=== PATIENT | female | born 1995 | race Caucasian/White ===

== ENCOUNTER 2018-03-23 21:19 | Emergency (ER) | payer SELFPAY ==
[2018-03-23 21:38] VITALS: BP 114/56
[2018-03-23 22:54] LABS: ABSOLUTE BASOPHILS # (AUTO) 0.1 10^3/uL (0.0-0.2); ABSOLUTE LYMPHOCYTES (AUTO) 2.6 10^3/uL (0.5-4.7); ABSOLUTE MONOCYTES (AUTO) 0.7 10^3/uL (0.1-1.4); ABSOLUTE NEUT (AUTO) 8.7 10^3/uL (1.7-8.2); BASOPHILS % (AUTO) 0.8 % (0-2); EOSINOPHILS % (AUTO) 0.2 % (0-6); HEMATOCRIT 38.8 % (36.0-47.0); HEMOGLOBIN 13.5 g/dL (12.0-15.5); LYMPHOCYTES % (AUTO) 21.1 % (13-45); MEAN CORPUSCULAR HEMOGLOBIN 34.7 pg (27.0-33.4); MEAN CORPUSCULAR HGB CONC 34.7 g/dL (32.0-36.0); MEAN CORPUSCULAR VOLUME 100 fl (80-97); PLATELET COUNT 300 10^3/uL (150-450); RED BLOOD COUNT 3.89 10^6/uL (3.72-5.28); RED CELL DISTRIBUTION WIDTH 13.2 % (11.5-14.0); SEGMENTED NEUTROPHILS % (AUTO) 71.9 % (42-78); TOTAL CELLS COUNTED % (AUTO) 100 %; WHITE BLOOD COUNT 12.1 10^3/uL (4.0-10.5)
[2018-03-23 22:58] LABS: APPEARANCE,URINE SLIGHTLY-CLOUDY; BILIRUBIN,URINE NEGATIVE (NEGATIVE); COLOR,URINE YELLOW; GLUCOSE, URINE 50 mg/dL (NEGATIVE); KETONES,URINE 80 mg/dL (NEGATIVE); LEUKOCYTE ESTERASE,URINE NEGATIVE (NEGATIVE); NITRITE,URINE NEGATIVE (NEGATIVE); PROTEIN,URINE 100 mg/dL (NEGATIVE); URINE SPECIFIC GRAVITY 1.023
[2018-03-23] MEDS ORDERED: METOCLOPRAMIDE HCL INJ/PF 10 MG/2 ML SDV IV ONE (23:21)
[2018-03-23] MEDS ORDERED: RINGERS SOLUTION,LACTATED 1,000 ML IV PRN (23:21)
--- NOTE | 2018-03-23 23:25 | ER Document Report ---
ED General - General Chief Complaint: Nausea/Vomiting Stated Complaint: VOMITING Time Seen by Provider: 03/23/18 23:14 Notes: Patient is a pleasant 23-year-old female who is currently approximately 6 weeks . This is her first . She complains of some nausea and vomiting. No diarrhea. Vomit is been ongoing for a few weeks. She said she was seen approximately a week ago. She was placed on what sounds to be components of likely just. She says she does continue to vomit them up. She denies being on Reglan or Zofran. She does not have an OB doctor. She did have an ultrasound 1 week ago which showed a normal IUP. No vaginal bleeding or discharge since then. She has some upper abdominal pain associate with vomiting. No history of abdominal surgeries. TRAVEL OUTSIDE OF THE [place] IN LAST 30 DAYS: No - Related Data Allergies/Adverse Reactions: No Known Drug Allergies Allergy (Verified 03/23/18 22:36) Past Medical History - Social History Smoking Status: Never Smoker Chew tobacco use (# tins/day): No Frequency of alcohol use: None Drug Abuse: None Family History: Reviewed & Not Pertinent Patient has suicidal ideation: No Patient has homicidal ideation: No Renal/ Medical History: Denies: Hx Peritoneal Dialysis Review of Systems - Review of Systems Notes: My Normal Review Basic REVIEW OF SYSTEMS: CONSTITUTIONAL : Denies fever, chills, or sweats. Denies recent illness. EENT: Denies eye, ear, throat, or mouth pain or symptoms. Denies nasal or sinus congestion. RESPIRATORY: Denies cough, cold, or chest congestion. Denies shortness of breath, difficulty breathing, or wheezing. GASTROINTESTINAL: Upper abdominal pain. Recurrent vomiting. GENITOURINARY: Denies difficulty urinating, painful urination, burning, frequency, or blood in urine. FEMALE GENITOURINARY: Denies vaginal bleeding, abnormal or irregular periods. currently MUSCULOSKELETAL: Denies neck or back pain or joint pain or swelling. SKIN: Denies rash or skin lesions. NEUROLOGICAL: Denies altered mental status or loss of consciousness. Denies headache. Denies weakness or paralysis or loss of use of either side. Denies problems with gait or speech. Denies sensory or motor loss. ALL OTHER SYSTEMS REVIEWED AND NEGATIVE. Physical Exam - Vital signs Vitals: Temp Pulse Resp BP Pulse Ox 97.9 F 79 18 114/56 L 99 11/20/18 21:19 03/23/18 21:19 03/23/18 21:19 03/23/18 21:19 03/23/18 21:19 - Notes Notes: General Appearance: Well nourished, alert, cooperative, no acute distress, no obvious discomfort. Anxious Vitals: reviewed, See vital signs table. Head: no swelling or tenderness to the head Eyes: PERRL, EOMI, Conjuctiva clear Mouth: No decreasd moisture Neck: Supple, no neck tenderness, No thyromegaly Lungs: No wheezing, No rales, No rhonci, No accessory muscle use, good air exchange bilaterally. Heart: normal rate, Regular rythm, No murmur, no rub Abdomen: Normal BS, soft, No rigidity, some pain to palpation of upper abdomen that is mainly in the epigastric region. Lower abdomen is nontender., No guarding, no rebound, no abdominal masses, no organomegaly Extremities: strength 5/5 in all extremities, good pulses in all extremities, no swelling or tenderness in the extremities, no edema. Skin: warm, dry, appropriate color, no rash Neuro: speech clear, oriented x 3, normal affect, responds appropriately to questions. Course - Re-evaluation Re-evalutation: 03/24/18 00:51 Patient has what appears to be hyperemesis gravidarum. She does have some pain mainly in the epigastric region of her abdomen. I suspect this is from all the vomiting. She has minimal pain in the right upper quadrant and left upper quadrant. She has no pain lower abdomen. I do not suspect gallbladder disease as she does not have much pain to palpation right upper quadrant and the patient has normal liver enzymes and normal direct bilirubin. My plan was to continue to rehydrate the patient and then reassess the patient. Shortly after the patient received the medications she informed the nurse that she wanted to leave. I therefore went to talk to the patient. She said that she felt that she would be better if she just went home. She says she is also supposed to See her mom tomorrow in [place]. Her mother is a physician's assistant credit manager. States that she just feels better if she goes up and sees her mom and gets care there. She states she is not upset with her care here and states that she feels that she will be doing better at home. She did request water earlier after she revceived the the Reglan and apparently drank a small amount without vomiting. I went and spoke with the patient. I informed her that I think it is a bad idea to leave. I informed her that I would want to make sure that she continues to hold down liquids and that she actually receives a significant amount of IV fluids and that her pain improves. I informed her that I cannot be 100% sure that she will do well if she leaves at this time. I encouraged informed her that if she continues to have worsening vomiting that she will get more dehydrated and that she could potentially have a miscarriage or become more ill herself. Patient shows understanding of this and is awake and alert shows capacity to make her own decisions and her is at bedside. They both show appreciation for my concern but both say that they want to go home at this time the patient does not want to stay. She is agreeable to let me at least prescribe her some Reglan to try to help with her vomiting. She has only received approximately 500 mL's of IV fluids thus far. I do not feel I can hold the patient against her will. I will discharge patient as she requests and strongly encouraged her to come back to ER anytime as we want what is best for her and want her to get better. She is understanding that leaving while still dehydrated not demonstrating full ability to hold down significant amount of liquids could lead to her to becoming more dehydrated potentially causing a miscarriage. I again explained this to her at length and she shows understanding of this but still requests to be discharged. Dictation of this chart was performed using voice recognition software; therefore, there may be some unintended grammatical errors. - Vital Signs Vital signs: Temp Pulse Resp BP Pulse Ox 97.9 F 79 18 114/56 L 99 03/23/18 21:19 03/23/18 21:19 03/23/18 21:19 03/23/18 21:19 03/23/18 21:19 - Laboratory Result Diagrams: 03/23/18 22:30 03/23/18 23:17 Laboratory results interpreted by me: 03/23/18 03/23/18 03/23/18 22:30 22:30 22:40 WBC 12.1 H MCV 100 H MCH 34.7 H Absolute Neutrophils 8.7 H Carbon Dioxide Total Bilirubin Serum HCG, Qual POSITIVE H Urine Protein 100 H Urine Glucose (UA) 50 H Urine Ketones 80 H Urine Urobilinogen 2.0 H 03/23/18 23:17 WBC MCV MCH Absolute Neutrophils Carbon Dioxide 20 L Total Bilirubin 2.6 H Serum HCG, Qual Urine Protein Urine Glucose (UA) Urine Ketones Urine Urobilinogen Discharge - Discharge Clinical Impression: Hyperemesis gravidarum Condition: Fair Disposition: HOME, SELF-CARE Additional Instructions: Please follow up with a physician as soon as possible. As discussed with you, I am concerned that you are still dehydrated and I really think you should stay longer and continue to receive IV fluids. Further dehydration can lead to you becoming very ill and having a miscarriage. We are not mad at you for leaving and just want what is best for you so please return to the ER at any time so we can continue to treat you and get you better. Please take the new nausea medication (reglan) as prescribed. Please strongly consider return to the ER at any time for continued treatment and for rehydration. Please follow up with an OB doctor as soon as possible. I will give you a referral to our OB councilperson ( Dr. Wilder). Prescriptions: Metoclopramide HCl [Reglan 10 mg Tablet] 1 tab PO ASDIR PRN #25 tablet PRN Reason: Referrals: AMADOR WILDER MD [ACTIVE STAFF] - Follow up tomorrow
[2018-03-23 23:47] LABS: ALANINE AMINOTRANSFERASE 17 U/L (9-52); ALBUMIN 4.5 g/dL (3.5-5.0); ALKALINE PHOSPHATASE 39 U/L (38-126); ANION GAP 13 (5-19); ASPARTATE AMINO TRANSFERASE 22 U/L (14-36); BILIRUBIN,DIRECT 0.3 mg/dL (0.0-0.4); BILIRUBIN,TOTAL 2.6 mg/dL (0.2-1.3); BLOOD UREA NITROGEN 8 mg/dL (7-20); CARBON DIOXIDE 20 mmol/L (22-30); CHLORIDE 107 mmol/L (98-107); GLUCOSE 85 mg/dL (75-110); POTASSIUM 4.2 mmol/L (3.6-5.0); SODIUM 139.5 mmol/L (137-145); TOTAL PROTEIN 7.6 g/dL (6.3-8.2)
== END 2018-03-24 00:55 | disposition home or self-care (01) ==
LOC: ER 21:19
DX: O21.1 Hyperemesis gravidarum with metabolic disturbance (principal); O26.899 Other specified pregnancy related conditions, unspecified trimester; R10.13 Epigastric pain; Z3A.00 Weeks of gestation of pregnancy not specified
CPT/HCPCS: 99284; 96360; 36415; 84703; 85025; 80053; 81001; J2765; J7120

== ENCOUNTER 2018-04-15 07:15 | Emergency (ER) | payer SELFPAY ==
[2018-04-15 07:50] LABS: ABSOLUTE LYMPHOCYTES (AUTO) 0.6 10^3/uL (0.5-4.7); ABSOLUTE MONOCYTES (AUTO) 0.3 10^3/uL (0.1-1.4); ABSOLUTE NEUT (AUTO) 10.7 10^3/uL (1.7-8.2); BASOPHILS % (AUTO) 0.2 % (0-2); EOSINOPHILS % (AUTO) 0.1 % (0-6); HEMATOCRIT 39.1 % (36.0-47.0); HEMOGLOBIN 13.8 g/dL (12.0-15.5); LYMPHOCYTES % (AUTO) 5.5 % (13-45); MEAN CORPUSCULAR HEMOGLOBIN 34.9 pg (27.0-33.4); MEAN CORPUSCULAR HGB CONC 35.3 g/dL (32.0-36.0); MEAN CORPUSCULAR VOLUME 99 fl (80-97); MONOCYTES % (AUTO) 2.3 % (3-13); PLATELET COUNT 286 10^3/uL (150-450); RED BLOOD COUNT 3.95 10^6/uL (3.72-5.28); RED CELL DISTRIBUTION WIDTH 13.2 % (11.5-14.0); SEGMENTED NEUTROPHILS % (AUTO) 91.9 % (42-78); TOTAL CELLS COUNTED % (AUTO) 100 %; WHITE BLOOD COUNT 11.6 10^3/uL (4.0-10.5)
[2018-04-15 08:03] LABS: ALANINE AMINOTRANSFERASE 21 U/L (9-52); ALBUMIN 4.8 g/dL (3.5-5.0); ALKALINE PHOSPHATASE 39 U/L (38-126); ANION GAP 18 (5-19); ASPARTATE AMINO TRANSFERASE 41 U/L (14-36); BILIRUBIN,DIRECT 0.3 mg/dL (0.0-0.4); BILIRUBIN,TOTAL 2.1 mg/dL (0.2-1.3); BLOOD UREA NITROGEN 9 mg/dL (7-20); CALCIUM 10.2 mg/dL (8.4-10.2); CARBON DIOXIDE 16 mmol/L (22-30); CHLORIDE 106 mmol/L (98-107); GLUCOSE 129 mg/dL (75-110); LIPASE 98.9 U/L (23-300); POTASSIUM 4.1 mmol/L (3.6-5.0); SODIUM 140.2 mmol/L (137-145); TOTAL PROTEIN 8.3 g/dL (6.3-8.2)
[2018-04-15] MEDS ORDERED: NORMAL SALINE 1000 ML 1,000 ML IV ONE ×2 (08:12→11:29)
[2018-04-15] MEDS ORDERED: METOCLOPRAMIDE HCL INJ/PF 10 MG/2 ML SDV IV ONE ×2 (08:12→11:35)
[2018-04-15] MEDS ORDERED: MAG HYDROX/AL HYDROX/SIMETH SUSP 30 ML UDCUP PO ONE ×2 (08:13→11:34)
[2018-04-15] MEDS ORDERED: LIDOCAINE 2% VISCOUS SOLN 20 ML UDCUP PO ONE ×2 (08:13→11:34)
--- NOTE | 2018-04-15 08:18 | ER Document Report ---
ED General - General Mode of Arrival: Ambulatory Information source: Patient TRAVEL OUTSIDE OF THE [place] IN LAST 30 DAYS: No <SABAS ABDI - Last Filed: 04/15/18 08:23> <BRIAN ROCK - Last Filed: 04/15/18 13:16> - General Chief Complaint: Abdominal Pain Stated Complaint: ABDOMINAL PAIN Time Seen by Provider: 04/15/18 08:07 Notes: Patient is a 23 year old female approximately 10 weeks presents to the emergency department complaining of epigastric abdominal pain and nausea. Patient states she has been having similar symptoms for approximately 1 month but states the pain acutely worsened around 0200 this morning. Patient was seen approximately 1 month ago complaining of nausea and vomiting and discharged with Reglan. Patient is G1. (JINSABAS) - Related Data Allergies/Adverse Reactions: No Known Drug Allergies Allergy (Verified 04/15/18 07:27) Past Medical History - General Information source: Patient - Social History Smoking Status: Former Smoker Cigarette use (# per day): No Chew tobacco use (# tins/day): No Smoking Education Provided: No Drug Abuse: None Family History: Reviewed & Not Pertinent Patient has suicidal ideation: No Patient has homicidal ideation: No <SABAS ABDI - Last Filed: 04/15/18 08:23> Review of Systems - Review of Systems Constitutional: No symptoms reported EENT: No symptoms reported Cardiovascular: No symptoms reported Respiratory: No symptoms reported Gastrointestinal: See HPI, Abdominal pain, Vomiting Genitourinary: No symptoms reported Female Genitourinary: See HPI, Musculoskeletal: No symptoms reported Skin: No symptoms reported Hematologic/Lymphatic: No symptoms reported Neurological/Psychological: No symptoms reported -: Yes All other systems reviewed and negative <SABAS ABDI - Last Filed: 04/15/18 08:23> Physical Exam <SABAS ABDI - Last Filed: 04/15/18 08:23> <BRIAN ROCK - Last Filed: 04/15/18 13:16> - Vital signs Vitals: Resp Pulse Ox 28 H 100 04/15/18 07:21 04/15/18 07:21 - Notes Notes: GENERAL: Alert, moaning, shaking and dry heaving in bed, appears uncomfortable. HEAD: Normocephalic, atraumatic. EYES: Pupils equal, round, and reactive to light. Extraocular movements intact. ENT: Oral mucosa moist, tongue midline. NECK: Full range of motion. Supple. Trachea midline. LUNGS: Clear to auscultation bilaterally, no wheezes, rales, or rhonchi. No respiratory distress. HEART: Regular rate and rhythm. No murmurs, gallops, or rubs. ABDOMEN: Soft, diffuse abdominal tenderness to palpation. Non-distended. Bowel sounds present in all 4 quadrants. EXTREMITIES: Moves all 4 extremities spontaneously. NEUROLOGICAL: Alert and oriented x3. Normal speech. PSYCH: Normal affect, normal mood. SKIN: Warm, dry, normal turgor. No rashes or lesions noted. (SABAS ABDI) Course - Laboratory Result Diagrams: 04/15/18 07:15 04/15/18 07:15 <SABAS ABDI - Last Filed: 04/15/18 08:23> - Laboratory Result Diagrams: 04/15/18 07:15 04/15/18 07:15 <BRIAN ROCK - Last Filed: 04/15/18 13:16> - Re-evaluation Re-evalutation: 04/15/18 13:15 Patient is anxious to go home at this time. She does suffer from anxiety disorder and gets more anxious when she is away from home for any length of time. The nausea and vomiting has stopped now, epigastric pain is much better after the GI cocktails. She is requesting Reglan prescription, as that has worked in the past, and Zofran did not work. (BRIAN ROCK) - Vital Signs Vital signs: Temp Pulse Resp BP Pulse Ox 97.9 F 19 92/48 L 98 04/15/18 07:31 04/15/18 11:01 04/15/18 11:01 04/15/18 11:01 - Laboratory Laboratory results interpreted by hi: 04/15/18 04/15/18 04/15/18 07:15 07:15 08:48 WBC 11.6 H MCV 99 H MCH 34.9 H Seg Neutrophils % 91.9 H Lymphocytes % 5.5 L Monocytes % 2.3 L Absolute Neutrophils 10.7 H Carbon Dioxide 16 L Glucose 129 H Total Bilirubin 2.1 H AST 41 H Total Protein 8.3 H Beta HCG, Quant 638127.00 H Urine Protein 100 H Urine Glucose (UA) >=500 H Urine Ketones 80 H Ur Leukocyte Esterase TRACE H Discharge <JIN,TAMCHANDRAKANT - Last Filed: 04/15/18 08:23> <BRIAN ROCK - Last Filed: 04/15/18 13:16> - Discharge Clinical Impression: Hyperemesis gravidarum, Epigastric abdominal pain Condition: Stable Disposition: HOME, SELF-CARE Additional Instructions: Hyperemesis Gravidarum Hyperemesis gravidarum is the medical term for severe vomiting during . We don't know exactly why it occurs, but it's a common problem. Dehydration can occur. This reduces blood flow to the placenta, decreasing the baby's nourishment. The baby will also become dehydrated. There can be harmful changes in blood sodium, potassium, or acid balance. Our goal is to correct, and prevent, dehydration. For severe cases, we give IV fluids. Antinausea medication will be prescribed. (Don't be concerned about " defects" -- the risk to you and your baby from the hyperemesis is the biggest problem. The antinausea medication is very safe at this stage of .) Call the doctor if you have vaginal bleeding, abdominal pain, severe lightheadedness or weakness, or other alarming symptoms. Take medication as prescribed for nausea when needed. Drink cool clear liquids today. Take antacids every few hours to keep the acid down in your stomach. Follow-up with [facility] for management of your and your vomiting. RETURN TO THE EMERGENCY ROOM IF ANY NEW OR WORSENING SYMPTOMS. Prescriptions: Metoclopramide HCl [Reglan 10 mg Tablet] 1 - 2 tab PO ASDIR PRN #25 tablet PRN Reason: Referrals: [facility] [Provider Group] - Follow up in 3-5 days Scribe Attestation: 04/15/18 09:24 I personally performed the services described in the documentation, reviewed and edited the documentation which was dictated to the scribe in my presence, and it accurately records my words and actions. (BRIAN ROCK) Scribe Documentation - Scribe Written by Scribe:: Suzanne Bustillo, 04/15/2018 08:17 acting as scribe for :: Kadeem <SABAS ABDI - Last Filed: 04/15/18 08:23>
[2018-04-15 09:13] LABS: APPEARANCE,URINE CLOUDY; BILIRUBIN,URINE NEGATIVE (NEGATIVE); COLOR,URINE YELLOW; GLUCOSE, URINE >=500 mg/dL (NEGATIVE); KETONES,URINE 80 mg/dL (NEGATIVE); LEUKOCYTE ESTERASE,URINE TRACE (NEGATIVE); NITRITE,URINE NEGATIVE (NEGATIVE); PROTEIN,URINE 100 mg/dL (NEGATIVE); URINE SPECIFIC GRAVITY 1.026; UROBILINOGEN,URINE NEGATIVE mg/dL (<2.0)
[2018-04-15] MEDS ORDERED: DEXTROSE 5%-LACTATED RINGERS 1,000 ML IV ONE (09:24)
[2018-04-15] MEDS ORDERED: FAMOTIDINE INJ/PF 20 MG/2 ML SDV IV ONE (11:34)
[2018-04-15 13:31] VITALS: BP 103/57
== END 2018-04-15 13:36 | disposition home or self-care (01) ==
LOC: ER 07:15
DX: O21.0 Mild hyperemesis gravidarum (principal); O26.899 Other specified pregnancy related conditions, unspecified trimester; R10.13 Epigastric pain; R10.817 Generalized abdominal tenderness; O99.340 Other mental disorders complicating pregnancy, unspecified trimester; F41.9 Anxiety disorder, unspecified; Z3A.00 Weeks of gestation of pregnancy not specified; Z87.891 Personal history of nicotine dependence
CPT/HCPCS: 96376; 99284; 96361; 96374; 96375; 36415; 84702; 83690; 85025; 80053; 81001; J3490; J2765; J7030; S0028

== ENCOUNTER 2018-05-25 12:04 | Observation (INO) | payer MEDICAID ==
[2018-05-25] MEDS ORDERED: RINGERS SOLUTION,LACTATED 1,000 ML IV PRN (12:39)
[2018-05-25] MEDS ORDERED: ACETAMINOPHEN 1,000 MG/100 ML RTUPB IV ONE (13:30)
[2018-05-25 13:42] LABS: HEMATOCRIT 34.5 % (36.0-47.0); HEMOGLOBIN 11.9 g/dL (12.0-15.5); MEAN CORPUSCULAR HGB CONC 34.7 g/dL (32.0-36.0); MEAN CORPUSCULAR VOLUME 101 fl (80-97); PLATELET COUNT 270 10^3/uL (150-450); RED BLOOD COUNT 3.41 10^6/uL (3.72-5.28); RED CELL DISTRIBUTION WIDTH 14.3 % (11.5-14.0); WHITE BLOOD COUNT 11.7 10^3/uL (4.0-10.5)
[2018-05-25] MEDS ORDERED: PROMETHAZINE HCL 25 MG SUPP.RECT PR SCH (14:00)
[2018-05-25 14:01] LABS: ALANINE AMINOTRANSFERASE 16 U/L (9-52); ALBUMIN 4.1 g/dL (3.5-5.0); ALKALINE PHOSPHATASE 35 U/L (38-126); AMYLASE 61 U/L (30-110); ANION GAP 7 (5-19); ASPARTATE AMINO TRANSFERASE 20 U/L (14-36); BILIRUBIN,DIRECT 0.1 mg/dL (0.0-0.4); BILIRUBIN,TOTAL 1.6 mg/dL (0.2-1.3); BLOOD UREA NITROGEN 8 mg/dL (7-20); CALCIUM 9.4 mg/dL (8.4-10.2); CARBON DIOXIDE 24 mmol/L (22-30); CHLORIDE 103 mmol/L (98-107); GLUCOSE 82 mg/dL (75-110); LIPASE 48.7 U/L (23-300); POTASSIUM 3.5 mmol/L (3.6-5.0); SODIUM 134.4 mmol/L (137-145); TOTAL PROTEIN 6.8 g/dL (6.3-8.2)
[2018-05-25 14:16] LABS: FREE T4 (FREE THYROXINE) 1.03 ng/dL (0.78-2.19)
[2018-05-25 14:31] LABS: THYROID STIMULATING HORMONE 0.69 uIU/mL (0.47-4.68)
[2018-05-25] MEDS ORDERED: ONDANSETRON HCL INJ/PF 4 MG/2 ML SDV IV SCH (15:00)
[2018-05-25 15:45] VITALS: BP 94/57
[2018-05-25] MEDS ORDERED: DEXAMETHASONE SOD PHOSPHATE INJ 4 MG/1 ML VIAL IV SCH (18:00)
[2018-05-25] MEDS ORDERED: METOCLOPRAMIDE HCL INJ/PF 10 MG/2 ML SDV IV SCH (18:00)
== END 2018-05-25 17:40 | disposition left against medical advice (07) ==
LOC: 2S 12:04
PROVIDERS: ADMIT Obstetrics & Gynecology; ATTEND Obstetrics & Gynecology
DX: O21.0 Mild hyperemesis gravidarum (principal); Z53.21 Procedure and treatment not carried out due to patient leaving prior to being seen by health care provider
CPT/HCPCS: 36415; 84439; 82150; 83690; 84443; 85027; 80053; G0378; G0379; J1100; J2765; J2405; J0131